=== PATIENT | male | born 1955 | race Caucasian/White ===

== ENCOUNTER 2023-04-29 15:02 | Observation (INO) | payer MEDICARE, BC, OTHER ==
[2023-04-29 19:39] LABS: HEMATOCRIT 37.9 % (35.4-49); HEMOGLOBIN 12.9 G/dL (11.7-16.9); MCH 29.9 pg (25.7-33.7); MEAN CELL VOLUME 87.9 fl (80-96); MEAN PLT VOLUME 8.2 fl (7.5-11.1); RBC 4.31 10^6/uL (4.00-5.60); RDW 14.8 % (11.9-15.9); WHITE BLOOD COUNT 7.8 10^3/uL (4.0-10.8)
[2023-04-29 19:41] LABS: INR 1.13 (0.83-1.09); PROTHROMBIN TIME (PATIENT) 13.1 SEC (9.7-13.0)
[2023-04-29 19:44] LABS: ACTIVATED PTT 49.5 SECONDS (25.2-36.5)
[2023-04-29 19:51] LABS: ALBUMIN 3.6 g/dl (3.4-5.0); BLOOD UREA NITROGEN 22.3 mg/dl (7-18); CALCIUM 8.9 mg/dl (8.5-10.1); CREATININE 1.4 mg/dl (0.6-1.3); SGOT/AST 23.1 U/L (15-37); SGPT/ALT 25.7 U/L (7-52); TOT PROT 6.2 g/dl (6.4-8.2)
[2023-04-29 19:53] LABS: PLATELET ESTIMATE SLT DECREASE
[2023-04-29] MEDS ORDERED: ACETAMINOPHEN 325 MG TABLET (FP) PO PRN (21:06)
[2023-04-29 21:52] LABS: BILIRUBIN,TOTAL 0.5 mg/dL (0.2-1)
[2023-04-29 22:18] VITALS: BMI 26.6
[2023-04-30] MEDS ORDERED: DEXTROSE 5%-0.45% SALINE 1,000 ML IV SCH
[2023-04-30 09:34] LABS: BLOOD UREA NITROGEN 19.8 mg/dl (7-18); CREATININE 1.4 mg/dl (0.6-1.3); POTASSIUM 4.1 mmol/L (3.5-5.1)
[2023-04-30] MEDS: MULTIVITAMINS (DAILY MVI) TABLET (FP) PO SCH (10:13)
[2023-04-30] MEDS: SODIUM CHLORIDE 1,000 ML IV SCH (10:13)
[2023-04-30 10:55] LABS: BASO % 0.5 % (0-2.0); EOS % 1.9 % (0-4.5); HEMATOCRIT 37.3 % (35.4-49); HEMOGLOBIN 12.5 GM/dL (11.7-16.9); LYMPH % 15.3 % (8-40); MCH 28.6 pg (25.7-33.7); MCHC 33.5 g/dl (32.0-35.9); MEAN CELL VOLUME 85.4 fl (80-96); MEAN PLT VOLUME 10.2 fl (7.5-11.1); MONO % 8.6 % (3.8-10.2); NEUT % 73.7 % (42.8-82.8); PLATELET COUNT 112 10^3/uL (134-434); RBC 4.37 M/mm3 (4.00-5.60); RDW 14.7 % (11.9-15.9); WHITE BLOOD COUNT 7.5 K/mm3 (4.0-10.0)
[2023-04-30] MEDS ORDERED: ARTIFICIAL TEARS (POLYVINYL ALCOHOL) OPTH DROPS OU PRN (14:37)
[2023-04-30 15:37] LABS: MAGNESIUM 2.2 mg/dL (1.8-2.4)
[2023-04-30 15:41] LABS: PHOSPHOROUS 2.8 mg/dL (2.5-4.9)
[2023-04-30] MEDS: ERYTHROMYCIN 0.5% OPHTHALMIC OINTMENT 3.5 GM TUBE OD SCH (16:32)
[2023-04-30] MEDS: ASPIRIN 81 MG CHEWABLE TABLETS PO SCH (18:57)
[2023-04-30] MEDS: ATORVASTATIN CA 40 MG TABLET (FP) PO SCH (21:11)
[2023-05-01] MEDS: MULTIVITAMINS (DAILY MVI) TABLET (FP) PO SCH (09:24)
[2023-05-01] MEDS: ASPIRIN 81 MG CHEWABLE TABLETS PO SCH (09:24)
[2023-05-01] MEDS: ERYTHROMYCIN 0.5% OPHTHALMIC OINTMENT 3.5 GM TUBE OD SCH (09:26)
[2023-05-01] MEDS ORDERED: REFRIGERATED ANITBIOTICS ONE (13:48)
[2023-05-01] MEDS: ATORVASTATIN CA 40 MG TABLET (FP) PO SCH (21:28)
[2023-05-02] MEDS: MULTIVITAMINS (DAILY MVI) TABLET (FP) PO SCH (09:47)
[2023-05-02] MEDS: ASPIRIN 81 MG CHEWABLE TABLETS PO SCH (09:47)
[2023-05-02] MEDS: ERYTHROMYCIN 0.5% OPHTHALMIC OINTMENT 3.5 GM TUBE OD SCH (09:48)
[2023-05-02] MEDS: SODIUM CHLORIDE 1,000 ML IV SCH (09:48)
[2023-05-02] MEDS: ATORVASTATIN CA 40 MG TABLET (FP) PO SCH (21:06)
[2023-05-03] MEDS: ASPIRIN 81 MG CHEWABLE TABLETS PO SCH (09:12)
[2023-05-03] MEDS: MULTIVITAMINS (DAILY MVI) TABLET (FP) PO SCH (09:12)
[2023-05-03] MEDS: SODIUM CHLORIDE 1,000 ML IV SCH (09:13)
[2023-05-03] MEDS: ERYTHROMYCIN 0.5% OPHTHALMIC OINTMENT 3.5 GM TUBE OD SCH (09:14)
[2023-05-03 20:10] VITALS: RESP 18
[2023-05-03] MEDS: ATORVASTATIN CA 40 MG TABLET (FP) PO SCH (22:00)
[2023-05-04 08:50] VITALS: BP 149/83; PULSE 106; TEMP 98.2
[2023-05-04] MEDS: SODIUM CHLORIDE 1,000 ML IV SCH (09:16)
[2023-05-04] MEDS: MULTIVITAMINS (DAILY MVI) TABLET (FP) PO SCH (09:18)
[2023-05-04] MEDS: ASPIRIN 81 MG CHEWABLE TABLETS PO SCH (09:18)
[2023-05-04] MEDS: ERYTHROMYCIN 0.5% OPHTHALMIC OINTMENT 3.5 GM TUBE OD SCH (09:19)
== END 2023-05-04 11:27 | disposition home or self-care (01) ==
LOC: FER 15:02 → SUPCPDRO 15:02 → OBSVTOIN 18:56 → INTOOBSV 18:56 → UNDOADMOB 18:56 → FM/S 18:56
PROVIDERS: ADMIT Internal Medicine; ATTEND Internal Medicine
PROC: 3E0337Z Introduction of Electrolytic and Water Balance Substance into Peripheral Vein, Percutaneous Approach (ICD-10-PCS; principal; 2023-04-29)
DX: R90.89 Other abnormal findings on diagnostic imaging of central nervous system (principal); F41.9 Anxiety disorder, unspecified; E78.00 Pure hypercholesterolemia, unspecified; R25.2 Cramp and spasm; G81.90 Hemiplegia, unspecified affecting unspecified side; W18.39XA Other fall on same level, initial encounter; Y93.89 Activity, other specified; Y92.098 Other place in other non-institutional residence as the place of occurrence of the external cause; Z88.8 Allergy status to other drugs, medicaments and biological substances
CPT/HCPCS: 36415; 70450-TC; 70544-TC; 70551-TC; 72125-TC; 80048; 80053; 80061; 81003; 83036; 83735; 84100; 84443; 85025; 85027; 85610; 85730; 87086; 87635; 93005; 93306-TC; 93880-TC; 96365; 97116-GP; 97162-GP; 99285-25; G0378

== ENCOUNTER 2023-09-01 12:07 | Emergency (ER) | payer OTHER, BC ==
[2023-09-01 13:50] VITALS: RESP 16; BMI 25.7
[2023-09-01 18:07] VITALS: BP 103/68; PULSE 102; TEMP 98
== END 2023-09-01 19:37 ==
LOC: JER 12:07
DX: M54.6 Pain in thoracic spine (principal); W19.XXXA Unspecified fall, initial encounter; Y92.199 Unspecified place in other specified residential institution as the place of occurrence of the external cause
CPT/HCPCS: 70450-TC; 71045-TC-FY; 72125-TC; 72128-TC; 72170-TC-FY; 93005; 93010; 99285-25

== ENCOUNTER 2023-09-20 14:30 | Emergency (ER) | payer OTHER, BC ==
[2023-09-20 15:53] VITALS: BMI 23.6
[2023-09-20 16:22] LABS: BASO % 0.4 % (0-2.0); EOS % 0.9 % (0-4.5); HEMATOCRIT 33.3 % (35.4-49); HEMOGLOBIN 10.8 GM/dL (11.7-16.9); LYMPH % 9.7 % (8-40); MCH 28.3 pg (25.7-33.7); MCHC 32.5 g/dl (32.0-35.9); MEAN CELL VOLUME 87.1 fl (80-96); MEAN PLT VOLUME 8.2 fl (7.5-11.1); MONO % 7.9 % (3.8-10.2); NEUT % 81.1 % (42.8-82.8); PLATELET COUNT 194 10^3/uL (134-434); RBC 3.83 M/mm3 (4.00-5.60); RDW 15.7 % (11.9-15.9); WHITE BLOOD COUNT 8.8 K/mm3 (4.0-10.0)
[2023-09-20] MEDS ORDERED: FAMOTIDINE 20 MG/50 ML IVPB 20 MG/50 ML MG IVPB ONE ×2 (16:30→17:04)
[2023-09-20] MEDS ORDERED: MAG HYDROX/AL HYDROX/SIMETH 30 ML UNIT-DOSE CUP PO ONE (16:30)
[2023-09-20] MEDS ORDERED: MAG HYDROX/AL HYDROX/SIMETH 30 ML UNIT-DOSE CUP ONE (17:03)
[2023-09-20 17:13] LABS: ALBUMIN 2.6 g/dl (3.4-5.0); BILIRUBIN,TOTAL 0.6 mg/dL (0.2-1); BLOOD UREA NITROGEN 15.9 mg/dL (7-18); CALCIUM 8.2 mg/dL (8.5-10.1); CREATININE 1.5 mg/dL (0.55-1.3); MAGNESIUM 1.9 mg/dL (1.8-2.4); PHOSPHOROUS 2.8 mg/dL (2.5-4.9); POTASSIUM 4.2 mmol/L (3.5-5.1); TOT PROT 6.6 g/dl (6.4-8.2)
[2023-09-20 19:59] LABS: EPI CELLS >36 /uL (0-25.1); HYALINE CASTS 4 /uL (0-3.1); URINE APPEARANCE CLEAR; URINE BACTERIA 95 /uL (0-1359); URINE BILIRUBIN NEGATIVE (NEGATIVE); URINE COLOR YELLOW; URINE GLUCOSE (UA) NEGATIVE (NEGATIVE); URINE KETONE NEGATIVE (NEGATIVE); URINE LEUK ESTERASE TRACE (NEGATIVE); URINE NITRITE NEGATIVE (NEGATIVE); URINE PROTEIN NEGATIVE (NEGATIVE); URINE WBC 65 /uL (0-25.8)
[2023-09-20 22:07] VITALS: TEMP 97.6
[2023-09-21 04:53] VITALS: BP 113/69; PULSE 83; RESP 17
== END 2023-09-21 10:59 ==
LOC: JER 14:30
PROC: 3E033GC Introduction of Other Therapeutic Substance into Peripheral Vein, Percutaneous Approach (ICD-10-PCS; principal; 2023-09-20)
DX: M54.50 Low back pain, unspecified (principal); R10.13 Epigastric pain; W19.XXXA Unspecified fall, initial encounter; Y92.199 Unspecified place in other specified residential institution as the place of occurrence of the external cause; Z20.822 Contact with and (suspected) exposure to COVID-19
CPT/HCPCS: 0241U-QW; 36415; 71045-TC-FY; 80053; 81003; 83735; 84100; 84484; 85025; 87086; 93005; 93010; 99285-25

== ENCOUNTER 2023-11-10 04:02 | Inpatient (IN) | payer OTHER, BC ==
[2023-11-10 04:42] LABS: BASO % 0.5 % (0-2.0); EOS % 0.8 % (0-4.5); HEMATOCRIT 34.2 % (35.4-49); HEMOGLOBIN 11.6 GM/dL (11.7-16.9); LYMPH % 7.2 % (8-40); MCH 29.1 pg (25.7-33.7); MCHC 33.8 g/dl (32.0-35.9); MEAN CELL VOLUME 86.1 fl (80-96); MEAN PLT VOLUME 8.7 fl (7.5-11.1); MONO % 7.9 % (3.8-10.2); NEUT % 83.6 % (42.8-82.8); PLATELET COUNT 171 10^3/uL (134-434); RBC 3.97 M/mm3 (4.00-5.60); RDW 15.9 % (11.9-15.9); WHITE BLOOD COUNT 10.5 K/mm3 (4.0-10.0)
[2023-11-10 05:01] LABS: POTASSIUM 4.2 mmol/L (3.5-5.1)
[2023-11-10 05:03] LABS: INR 1.22 (0.83-1.09); PROTHROMBIN TIME (PATIENT) 14.1 SEC (9.7-13.0)
[2023-11-10 05:04] LABS: ALBUMIN 2.8 g/dl (3.4-5.0); BLOOD UREA NITROGEN 24.3 mg/dL (7-18)
[2023-11-10 05:05] LABS: ACTIVATED PTT 52.9 SECONDS (25.2-36.5)
[2023-11-10 05:07] LABS: CREATININE 1.8 mg/dL (0.55-1.3)
[2023-11-10 05:08] LABS: BILIRUBIN,TOTAL 0.6 mg/dL (0.2-1); TOT PROT 6.6 g/dl (6.4-8.2)
[2023-11-10] MEDS: SODIUM CHLORIDE 500 ML IV STA (06:14)
[2023-11-10 08:20] LABS: URINE APPEARANCE CLEAR; URINE BILIRUBIN NEGATIVE (NEGATIVE); URINE COLOR YELLOW; URINE GLUCOSE (UA) NEGATIVE (NEGATIVE); URINE KETONE NEGATIVE (NEGATIVE); URINE LEUK ESTERASE NEGATIVE (NEGATIVE); URINE NITRITE NEGATIVE (NEGATIVE); URINE PROTEIN NEGATIVE (NEGATIVE)
[2023-11-10] MEDS: SODIUM CHLORIDE 0.9% 500 ML INFUS.BAG IV ONE (11:45)
[2023-11-10 12:57] LABS: CALCIUM 8.7 mg/dL (8.5-10.1)
[2023-11-10 12:58] LABS: ALBUMIN 2.5 g/dl (3.4-5.0); BLOOD UREA NITROGEN 20.4 mg/dL (7-18)
[2023-11-10 13:01] LABS: CREATININE 1.4 mg/dL (0.55-1.3)
[2023-11-10 13:02] LABS: BILIRUBIN,TOTAL 0.8 mg/dL (0.2-1)
[2023-11-10 13:03] LABS: TOT PROT 6.1 g/dl (6.4-8.2)
[2023-11-10 18:27] VITALS: BMI 22.6
[2023-11-10] MEDS: DEXTROSE 5%-NORMAL SALINE 1,000 ML IV SCH (18:31)
[2023-11-10] MEDS: HEPARIN NA (PORCINE) 5,000 UNITS/ML 1ML VIAL SQ SCH (21:22)
[2023-11-11] MEDS ORDERED: ACETAMINOPHEN 325 MG TABLET (FP) PO PRN (08:30)
[2023-11-11 08:54] LABS: BASO % 0.6 % (0-2.0); EOS % 0.9 % (0-4.5); HEMOGLOBIN 11.3 GM/dL (11.7-16.9); LYMPH % 8.9 % (8-40); MCH 28.8 pg (25.7-33.7); MCHC 33.3 g/dl (32.0-35.9); MEAN CELL VOLUME 86.4 fl (80-96); MEAN PLT VOLUME 9.3 fl (7.5-11.1); MONO % 7.9 % (3.8-10.2); NEUT % 81.7 % (42.8-82.8); PLATELET COUNT 168 10^3/uL (134-434); RBC 3.94 M/mm3 (4.00-5.60); RDW 15.6 % (11.9-15.9); WHITE BLOOD COUNT 9.6 K/mm3 (4.0-10.0)
[2023-11-11 09:00] LABS: INR 1.31 (0.83-1.09); PROTHROMBIN TIME (PATIENT) 15.2 SEC (9.7-13.0)
[2023-11-11] MEDS: ASPIRIN 81 MG CHEWABLE TABLETS PO SCH (09:43)
[2023-11-11] MEDS: MULTIVITAMINS (DAILY MVI) TABLET (FP) PO SCH (09:43)
[2023-11-11 09:52] LABS: POTASSIUM 4.1 mmol/L (3.5-5.1)
[2023-11-11 09:54] LABS: CALCIUM 8.5 mg/dL (8.5-10.1)
[2023-11-11 09:55] LABS: ALBUMIN 2.6 g/dl (3.4-5.0)
[2023-11-11 09:58] LABS: CREATININE 1.2 mg/dL (0.55-1.3); PHOSPHOROUS 2.7 mg/dL (2.5-4.9)
[2023-11-11 10:00] LABS: BILIRUBIN,TOTAL 1.1 mg/dL (0.2-1); TOT PROT 6.4 g/dl (6.4-8.2)
[2023-11-11] MEDS: CEFTRIAXONE 1 GM in DEXTROSE 5%-WATER - 50 ML IVPB SCH (12:18)
[2023-11-11] MEDS: ERYTHROMYCIN 0.5% OPHTHALMIC OINTMENT 3.5 GM TUBE OD SCH (14:13)
[2023-11-11] MEDS ORDERED: PIPERACILLIN/TAZOB 3.375 GM 3.375 GM in DEXTROSE 5%-WATER - 50 ML IVPB SCH (18:00)
[2023-11-11] MEDS: PIPERACILLIN/TAZOB 3.375 GM 3.375 GM in DEXTROSE 5%-WATER - 50 ML IVPB SCH (18:01)
[2023-11-11] MEDS ORDERED: ATORVASTATIN CA 40 MG TABLET (FP) PO SCH (22:00)
[2023-11-12 09:58] LABS: POTASSIUM 3.8 mmol/L (3.5-5.1)
[2023-11-12 10:01] LABS: ALBUMIN 2.8 g/dl (3.4-5.0); CALCIUM 8.6 mg/dL (8.5-10.1)
[2023-11-12 10:02] LABS: BLOOD UREA NITROGEN 13.9 mg/dL (7-18)
[2023-11-12 10:05] LABS: CREATININE 1.4 mg/dL (0.55-1.3)
[2023-11-12 10:06] LABS: TOT PROT 6.7 g/dl (6.4-8.2)
[2023-11-12 10:07] LABS: BASO % 0.5 % (0-2.0); BILIRUBIN,TOTAL 0.9 mg/dL (0.2-1); EOS % 0.9 % (0-4.5); HEMATOCRIT 35.8 % (35.4-49); HEMOGLOBIN 12.3 GM/dL (11.7-16.9); LYMPH % 9.8 % (8-40); MCH 29.5 pg (25.7-33.7); MCHC 34.3 g/dl (32.0-35.9); MEAN PLT VOLUME 9.6 fl (7.5-11.1); MONO % 6.5 % (3.8-10.2); NEUT % 82.3 % (42.8-82.8); PLATELET COUNT 188 10^3/uL (134-434); RBC 4.16 M/mm3 (4.00-5.60); RDW 15.8 % (11.9-15.9)
[2023-11-12] MEDS: PANTOPRAZOLE 20 MG TABLET PO SCH (10:25)
[2023-11-12] MEDS: POLYETHYLENE GLYCOL (HEALTHYLAX) 3350 17 GM PACKET PO SCH (10:26)
[2023-11-12] MEDS: PIPERACILLIN/TAZOB 3.375 GM 3.375 GM in DEXTROSE 5%-WATER - 50 ML IVPB SCH (18:03)
[2023-11-13 07:09] VITALS: RESP 18
[2023-11-13] MEDS: ARTIFICIAL TEARS OPHTHALMIC DROPS OU PRN (09:42)
[2023-11-13 09:52] LABS: BASO % 0.5 % (0-2.0); EOS % 1.8 % (0-4.5); HEMATOCRIT 35.2 % (35.4-49); HEMOGLOBIN 11.5 GM/dL (11.7-16.9); LYMPH % 10.9 % (8-40); MCH 28.4 pg (25.7-33.7); MCHC 32.6 g/dl (32.0-35.9); MEAN PLT VOLUME 10.4 fl (7.5-11.1); MONO % 7.8 % (3.8-10.2); PLATELET COUNT 196 10^3/uL (134-434); RBC 4.05 M/mm3 (4.00-5.60); RDW 15.7 % (11.9-15.9)
[2023-11-13 12:28] LABS: POTASSIUM 4.6 mmol/L (3.5-5.1)
[2023-11-13 12:30] LABS: ALBUMIN 2.7 g/dl (3.4-5.0); BLOOD UREA NITROGEN 13.6 mg/dL (7-18); CALCIUM 9.3 mg/dL (8.5-10.1)
[2023-11-13 12:33] LABS: CREATININE 1.3 mg/dL (0.55-1.3)
[2023-11-13 12:35] LABS: BILIRUBIN,TOTAL 0.9 mg/dL (0.2-1); TOT PROT 6.5 g/dl (6.4-8.2)
[2023-11-13] MEDS: PIPERACILLIN/TAZOB 3.375 GM 3.375 GM in DEXTROSE 5%-WATER - 50 ML IVPB SCH (13:59)
[2023-11-16 09:17] LABS: BASO % 1.1 % (0-2.0); EOS % 1.8 % (0-4.5); HEMATOCRIT 41.7 % (35.4-49); HEMOGLOBIN 13.5 GM/dL (11.7-16.9); LYMPH % 15.4 % (8-40); MCH 28.6 pg (25.7-33.7); MCHC 32.4 g/dl (32.0-35.9); MEAN CELL VOLUME 88.1 fl (80-96); MEAN PLT VOLUME 8.7 fl (7.5-11.1); MONO % 6.7 % (3.8-10.2); PLATELET COUNT 273 10^3/uL (134-434); RBC 4.73 M/mm3 (4.00-5.60); WHITE BLOOD COUNT 9.6 K/mm3 (4.0-10.0)
[2023-11-16 09:47] LABS: POTASSIUM 4.4 mmol/L (3.5-5.1)
[2023-11-16 09:48] LABS: BLOOD UREA NITROGEN 13.6 mg/dL (7-18)
[2023-11-16 09:49] LABS: CALCIUM 9.9 mg/dL (8.5-10.1)
[2023-11-16 09:53] LABS: CREATININE 1.8 mg/dL (0.55-1.3)
[2023-11-16 09:54] LABS: BILIRUBIN,TOTAL 0.7 mg/dL (0.2-1); TOT PROT 8.2 g/dl (6.4-8.2)
[2023-11-16 09:55] LABS: ALBUMIN 3.4 g/dl (3.4-5.0)
[2023-11-16 21:46] VITALS: TEMP 98.2
[2023-11-17 10:05] VITALS: BP 119/78; PULSE 115
== END 2023-11-17 10:17 | disposition home or self-care (01) | DRG 392 ==
LOC: JER 04:02 → JERBED 15:22 → J5S 17:36 → OBSVTOIN 11-12 09:43
PROVIDERS: ADMIT Internal Medicine; ATTEND Internal Medicine
DX: K57.32 Diverticulitis of large intestine without perforation or abscess without bleeding (principal); N17.9 Acute kidney failure, unspecified; F41.9 Anxiety disorder, unspecified; N40.0 Benign prostatic hyperplasia without lower urinary tract symptoms; E78.5 Hyperlipidemia, unspecified; N18.9 Chronic kidney disease, unspecified; K82.8 Other specified diseases of gallbladder; R74.8 Abnormal levels of other serum enzymes; S00.83XA Contusion of other part of head, initial encounter; W19.XXXA Unspecified fall, initial encounter; Y93.89 Activity, other specified; Y92.89 Other specified places as the place of occurrence of the external cause; Y99.8 Other external cause status
CPT/HCPCS: 36415; 70450-TC; 70486-TC; 71250-TC; 72125-TC; 74176-TC; 74181-TC; 76705-TC; 78226-TC; 80053; 81003; 82550; 82728; 82977; 83516; 83540; 83550; 84100; 84484; 85025; 85610; 85730; 86038; 86140; 86301; 86704; 86803; 87040; 87340; 87517; 87635; 93005; 93010; 97116-GP; 97161-GP; 99285-25; A9537; G0378; J1644

== ENCOUNTER 2024-01-05 11:11 | Day surgery (SDC) | payer OTHER, BC ==
[2024-01-05 11:50] VITALS: TEMP 97.8; BMI 23.6
[2024-01-05 15:05] VITALS: BP 107/67; PULSE 77; RESP 16
== END 2024-01-05 14:10 | disposition home or self-care (01) ==
LOC: FASU-ENDO 11:11
PROVIDERS: ATTEND Internal Medicine Gastroenterology
PROC: 0DB68ZX Excision of Stomach, Via Natural or Artificial Opening Endoscopic, Diagnostic (ICD-10-PCS; 2024-01-05)
PROC: 0DB48ZX Excision of Esophagogastric Junction, Via Natural or Artificial Opening Endoscopic, Diagnostic (ICD-10-PCS; 2024-01-05)
PROC: 0DB98ZX Excision of Duodenum, Via Natural or Artificial Opening Endoscopic, Diagnostic (ICD-10-PCS; principal; 2024-01-05 12:53)
DX: K29.50 Unspecified chronic gastritis without bleeding (principal); K21.00 Gastro-esophageal reflux disease with esophagitis, without bleeding; K22.5 Diverticulum of esophagus, acquired; R10.13 Epigastric pain; R63.4 Abnormal weight loss
CPT/HCPCS: 88305-TC; 88342-TC

== ENCOUNTER 2024-02-23 11:45 | Day surgery (SDC) | payer OTHER, BC ==
[2024-02-21 15:46] VITALS: BMI 23.1
[2024-02-23 13:14] VITALS: RESP 16; TEMP 97
[2024-02-23 13:16] VITALS: BP 110/67; PULSE 70
== END 2024-02-23 14:51 | disposition home or self-care (01) ==
LOC: FASU-ENDO 11:45
PROVIDERS: ATTEND Internal Medicine Gastroenterology
PROC: 0DJD8ZZ Inspection of Lower Intestinal Tract, Via Natural or Artificial Opening Endoscopic (ICD-10-PCS; principal; 2024-02-23 12:19)
DX: Z12.11 Encounter for screening for malignant neoplasm of colon (principal); K57.30 Diverticulosis of large intestine without perforation or abscess without bleeding; K64.1 Second degree hemorrhoids

== ENCOUNTER 2024-09-30 07:47 | Inpatient (IN) | payer OTHER, BC ==
[2024-09-30] MEDS ORDERED: ACETAMINOPHEN 325 MG TABLET (FP) ONE (09:07)
[2024-09-30] MEDS: ACETAMINOPHEN 325 MG TABLET (FP) PO ONE (09:10)
[2024-09-30] MEDS: LACTATED RINGERS SOLUTION 1000 ML INFUS.BAG IV ONE (10:12)
[2024-09-30 10:23] LABS: BASO % 0.4 % (0-2.0); EOS % 0.1 % (0-4.5); HEMATOCRIT 30.7 % (35.4-49); HEMOGLOBIN 9.9 GM/dL (11.7-16.9); LYMPH % 6.7 % (8-40); MCHC 32.4 g/dl (32.0-35.9); MEAN CELL VOLUME 89.6 fl (80-96); MONO % 10.2 % (3.8-10.2); NEUT % 82.6 % (42.8-82.8); PLATELET COUNT 140 10^3/uL (134-434); RBC 3.43 M/mm3 (4.00-5.60); RDW 14.1 % (11.9-15.9); WHITE BLOOD COUNT 7.5 K/mm3 (4.0-10.0)
[2024-09-30 10:41] LABS: POTASSIUM 3.8 mmol/L (3.5-5.1)
[2024-09-30 10:43] LABS: ALBUMIN 2.6 g/dl (3.4-5.0); CALCIUM 8.8 mg/dL (8.5-10.1); MAGNESIUM 2.4 mg/dL (1.8-2.4)
[2024-09-30 10:47] LABS: CREATININE 1.7 mg/dL (0.55-1.3)
[2024-09-30 10:48] LABS: BILIRUBIN,TOTAL 0.8 mg/dL (0.2-1); TOT PROT 6.6 g/dl (6.4-8.2)
[2024-09-30] MEDS ORDERED: HEPARIN NA (PORCINE) 5,000 UNITS/ML 1ML VIAL ONE (14:02)
[2024-09-30] MEDS: HEPARIN NA (PORCINE) 5,000 UNITS/ML 1ML VIAL SQ SCH (14:25)
[2024-09-30 18:01] LABS: EPI CELLS 8 /uL (0-25.1); HYALINE CASTS 0 /uL (0-3.1); PH,URINE 5.5 (5.0-8.0); URINE APPEARANCE CLEAR; URINE BACTERIA 3 /uL (0-1359); URINE BILIRUBIN NEGATIVE (NEGATIVE); URINE COLOR YELLOW; URINE GLUCOSE (UA) NEGATIVE (NEGATIVE); URINE KETONE NEGATIVE (NEGATIVE); URINE LEUK ESTERASE NEGATIVE (NEGATIVE); URINE NITRITE NEGATIVE (NEGATIVE); URINE PROTEIN 2+ (NEGATIVE); URINE RBC 59.9 /uL (0-23.9); URINE WBC 10 /uL (0-25.8)
[2024-09-30] MEDS: ACETAMINOPHEN 325 MG TABLET (FP) PO PRN (19:00)
[2024-09-30 21:06] VITALS: BMI 23.3
[2024-10-01 08:16] LABS: HEMATOCRIT 33.5 % (35.4-49); MCH 29.2 pg (25.7-33.7); MCHC 32.8 g/dl (32.0-35.9); MEAN CELL VOLUME 89.1 fl (80-96); PLATELET COUNT 151 10^3/uL (134-434); RBC 3.76 M/mm3 (4.00-5.60); RDW 14.5 % (11.9-15.9); WHITE BLOOD COUNT 9.8 K/mm3 (4.0-10.0)
[2024-10-01 08:36] LABS: POTASSIUM 4.5 mmol/L (3.5-5.1)
[2024-10-01] MEDS ORDERED: ACETAMINOPHEN 325 MG TABLET (FP) PO PRN (08:41)
[2024-10-01 08:43] LABS: ALBUMIN 2.5 g/dl (3.4-5.0)
[2024-10-01 08:44] LABS: BLOOD UREA NITROGEN 26.4 mg/dL (7-18); CALCIUM 8.8 mg/dL (8.5-10.1); MAGNESIUM 2.3 mg/dL (1.8-2.4)
[2024-10-01 08:46] LABS: CREATININE 1.4 mg/dL (0.55-1.3); PHOSPHOROUS 2.4 mg/dL (2.5-4.9)
[2024-10-01 08:47] LABS: BILIRUBIN,TOTAL 0.9 mg/dL (0.2-1)
[2024-10-01 08:48] LABS: TOT PROT 6.5 g/dl (6.4-8.2)
[2024-10-01] MEDS: SODIUM CHLORIDE 1,000 ML IV STA (16:13)
[2024-10-01] MEDS: OSELTAMIVIR PHOSPHATE 75 MG CAPSULE PO ONE (16:13)
[2024-10-02 08:50] LABS: HEMATOCRIT 32.5 % (35.4-49); HEMOGLOBIN 10.7 GM/dL (11.7-16.9); MCHC 32.9 g/dl (32.0-35.9); MEAN CELL VOLUME 88.2 fl (80-96); MEAN PLT VOLUME 10.8 fl (7.5-11.1); PLATELET COUNT 146 10^3/uL (134-434); RBC 3.69 M/mm3 (4.00-5.60); RDW 14.2 % (11.9-15.9); WHITE BLOOD COUNT 12.1 K/mm3 (4.0-10.0)
[2024-10-02 09:03] LABS: POTASSIUM 3.6 mmol/L (3.5-5.1)
[2024-10-02 09:11] LABS: ALBUMIN 2.3 g/dl (3.4-5.0); CALCIUM 8.5 mg/dL (8.5-10.1)
[2024-10-02 09:15] LABS: CREATININE 1.3 mg/dL (0.55-1.3)
[2024-10-02 09:16] LABS: TOT PROT 6.3 g/dl (6.4-8.2)
[2024-10-02] MEDS: OSELTAMIVIR PHOSPHATE 30 MG CAPSULE PO SCH ×2 (10:37→21:05)
[2024-10-02] MEDS: MULTIVITAMINS (DAILY MVI) TABLET (FP) PO SCH (10:37)
[2024-10-02] MEDS ORDERED: ACETAMINOPHEN 325 MG TABLET (FP) PO PRN (13:45)
[2024-10-02] MEDS: HEPARIN NA (PORCINE) 5,000 UNITS/ML 1ML VIAL SQ SCH (15:10)
[2024-10-02 17:43] VITALS: RESP 18
[2024-10-03] MEDS: FAMOTIDINE 20 MG TABLET PO SCH (09:19)
[2024-10-03] MEDS: SOLIFENACIN SUCCINATE 5 MG TAB PO SCH (09:19)
[2024-10-03] MEDS: ASPIRIN COATED 81 MG TABLET.EC PO SCH (09:19)
[2024-10-03] MEDS: CITALOPRAM HYDROBROMIDE 10 MG TABLET PO SCH (09:19)
[2024-10-03] MEDS: ATORVASTATIN CA 40 MG TABLET (FP) PO SCH (21:30)
[2024-10-04] MEDS: guaiFENesin 200 MG/10 ML 10 ML UNIT-DOSE CUPS PO ONE (01:28)
[2024-10-04 09:36] LABS: HEMATOCRIT 31.9 % (35.4-49); HEMOGLOBIN 10.7 GM/dL (11.7-16.9); MCH 29.4 pg (25.7-33.7); MCHC 33.7 g/dl (32.0-35.9); MEAN CELL VOLUME 87.4 fl (80-96); MEAN PLT VOLUME 10.4 fl (7.5-11.1); PLATELET COUNT 156 10^3/uL (134-434); RBC 3.64 M/mm3 (4.00-5.60); RDW 14.4 % (11.9-15.9); WHITE BLOOD COUNT 13.5 K/mm3 (4.0-10.0)
[2024-10-04 09:49] LABS: POTASSIUM 3.8 mmol/L (3.5-5.1)
[2024-10-04] MEDS: guaiFENesin/D-METHORPHAN HB 10 ML UNIT-DOSE CUPS PO PRN (09:55)
[2024-10-04 10:03] LABS: CALCIUM 8.7 mg/dL (8.5-10.1); MAGNESIUM 2.2 mg/dL (1.8-2.4)
[2024-10-04 10:04] LABS: ALBUMIN 2.2 g/dl (3.4-5.0); BLOOD UREA NITROGEN 29.2 mg/dL (7-18); PHOSPHOROUS 2.6 mg/dL (2.5-4.9)
[2024-10-04 10:06] LABS: BILIRUBIN,TOTAL 1.8 mg/dL (0.2-1); CREATININE 1.4 mg/dL (0.55-1.3); TOT PROT 6.4 g/dl (6.4-8.2)
[2024-10-04] MEDS: SODIUM CHLORIDE 1,000 ML IV SCH (10:57)
[2024-10-04 18:17] LABS: POTASSIUM 3.6 mmol/L (3.5-5.1)
[2024-10-04 18:19] LABS: CALCIUM 8.3 mg/dL (8.5-10.1)
[2024-10-04 18:20] LABS: BLOOD UREA NITROGEN 29.8 mg/dL (7-18)
[2024-10-04 18:23] LABS: CREATININE 1.3 mg/dL (0.55-1.3)
[2024-10-04 18:24] LABS: BILIRUBIN,TOTAL 1.6 mg/dL (0.2-1); TOT PROT 6.2 g/dl (6.4-8.2)
[2024-10-05 03:08] VITALS: BP 115/74; PULSE 89
[2024-10-05 05:37] VITALS: TEMP 99.8
== END 2024-10-05 05:10 | DRG 194 ==
LOC: JER 07:47 → JERBED 09:14 → J4S 18:05 → OBSVTOIN 10-01 14:10 → J5S 10-02 13:31 → J6S 10-03 23:03
PROVIDERS: ADMIT Internal Medicine; ATTEND Internal Medicine
DX: J10.1 Influenza due to other identified influenza virus with other respiratory manifestations (principal); G81.90 Hemiplegia, unspecified affecting unspecified side; E78.5 Hyperlipidemia, unspecified; N40.0 Benign prostatic hyperplasia without lower urinary tract symptoms; R25.2 Cramp and spasm; M25.512 Pain in left shoulder; R50.9 Fever, unspecified; F41.9 Anxiety disorder, unspecified; E86.0 Dehydration; R74.01 Elevation of levels of liver transaminase levels; R91.8 Other nonspecific abnormal finding of lung field; K76.0 Fatty (change of) liver, not elsewhere classified; W06.XXXA Fall from bed, initial encounter; Y92.122 Bedroom in nursing home as the place of occurrence of the external cause; Y99.9 Unspecified external cause status
CPT/HCPCS: 0241U-QW; 36415; 70450-TC; 71045-TC-FY; 72125-TC; 72170-TC-FY; 73030-TC-LT-FY; 76705-TC; 80053; 81003; 82550; 82977; 83735; 84100; 84484; 85025; 85027; 86704; 86705; 86708; 86709; 86803; 87086; 87340; 87517; 93005; 93010; 97116-GP; 97162-GP; 99285-25; G0378; J1644